=== PATIENT | female | born 1980 | race Caucasian/White ===

== ENCOUNTER 2021-08-16 18:21 | Emergency (ER) | payer OTHER ==
[~2021-08-16] VITALS: Ht 167.6 cm; Wt 90.7 kg
[2021-08-16 19:16] LABS: *BILIRUBIN,URIN NEGATIVE (NEGATIVE); *CLARITY,URINE CLEAR (CLEAR); *COLOR,URINE YELLOW (YELLOW); *KETONES,URINE TRACE (NEGATIVE); *UROBILINOGEN,URINE 0.2 E.U./dl (NORMAL); LEUKOCYTE ESTERASE ,URINE NEGATIVE (NEGATIVE); NITRITE, URINE NEGATIVE (NEGATIVE); UGLUCOSE 2+ (NEGATIVE)
[2021-08-16 19:21] LABS: *BLOOD, URINE TRACE (NEGATIVE)
[2021-08-16 19:22] LABS: *URINE HCG, QUAL NEGATIVE (NEGATIVE)
[2021-08-16 19:45] LABS: BACTERIA,URINE NONE SEEN /HPF (NONE SEEN); RBC,URINE 0-3 /HPF (0-3); WBC,URINE 0-3 /HPF (0-3)
--- NOTE | 2021-08-16 20:02 | NUR ---
Dr. Rg at bedside for MSE.
[2021-08-16] MEDS ORDERED: HYDROMORPHONE 1 MG/1 ML DISP.SYRIN IV ONE ×2 (20:15→22:00)
[2021-08-16] MEDS ORDERED: ONDANSETRON 4 MG/2 ML VIAL IV ONE (20:15)
[2021-08-16] MEDS ORDERED: KETOROLAC TROMETHAMINE 30 MG INJ IVP ONE (20:15)
[2021-08-16] MEDS ORDERED: IV NORMAL SALINE 1000 ML BAG IV ONE (20:15)
[2021-08-16] MEDS ORDERED: KETOROLAC TROMETHAMINE 30 MG INJ ONE (20:44)
[2021-08-16] MEDS ORDERED: HYDROMORPHONE 2 MG/1 ML DISP.SYRIN ONE ×2 (20:44→22:04)
[2021-08-16] MEDS ORDERED: ONDANSETRON 4 MG/2 ML VIAL ONE (20:44)
--- NOTE | 2021-08-16 20:55 | NUR ---
Pt out of ER for CT.
--- NOTE | 2021-08-16 21:15 | NUR ---
Patient back to ER from CT.
[2021-08-16 21:57] LABS: HEMATOCRIT 28.1 % (31.2-41.9); MEAN CORPUSCULAR HEMOGLOBIN 19.3 uug (24.7-32.8); MEAN CORPUSCULAR VOLUME 63.6 fL (75.5-95.3); PLATELET COUNT (AUTO) 589 K/uL (179-408)
[2021-08-16 22:04] LABS: CREATININE 0.8 mg/dL (0.6-1.3); POTASSIUM 3.8 mmol/L (3.5-5.1)
[2021-08-16 22:09] LABS: BILIRUBIN,DIRECT 0.1 mg/dL (0.0-0.2); BILIRUBIN,TOTAL 0.2 mg/dL (0.2-1.0); TOTAL PROTEIN, SERUM 7.6 g/dL (6.4-8.2)
[2021-08-16] MEDS ORDERED: OXYC-128 PO (23:45)
[2021-08-16] MEDS ORDERED: FERR325T23 PO (23:49)
--- NOTE | 2021-08-17 00:07 | NUR ---
Patient discharged to home in stable condition. Written and verbal after care instructions given. Patient verbalizes understanding of instructions. Stressed follow up or return to ER for worsening s/s. Patient out of ER with steady gait, no acute signs of distress, VSS, all belongings taken, IV site discontinued, provided with copies of lab and CT results.
[2021-08-17 00:08] VITALS: BP 128/82
== END 2021-08-17 00:08 | disposition home or self-care (01) ==
LOC: ER 18:24
DX: R10.2 Pelvic and perineal pain (principal); D50.9 Iron deficiency anemia, unspecified; R11.0 Nausea
CPT/HCPCS: 36415; 74176; 80048; 80076; 81001; 84703; 85025; 96361; 96374; 96375; 96376; 99284; J1170 ×2; J1885; J2405; A4663; J7030